=== PATIENT | female | born 1995 | race Caucasian/White ===

== ENCOUNTER → 2017-01-03 | Outpatient (REF) | payer OTHER | LOC: M SFHCLERA 12:01 | PROVIDERS: ATTEND Nurse Practitioner Family | DX: J06.9 Acute upper respiratory infection, unspecified (principal) ==

== ENCOUNTER → 2017-10-27 | Outpatient (REF) | payer OTHER ==
[2017-10-27 17:24] LABS: INFLUENZA A AMPLIFICATION NEGATIVE (NEGATIVE); INFLUENZA B AMPLIFICATION NEGATIVE (NEGATIVE)
== END ==
LOC: M SFHCLERA 14:54
DX: R68.89 Other general symptoms and signs (principal)

== ENCOUNTER 2020-09-09 22:40 | Emergency (ER) | payer OTHER ==
[~2020-09-09] VITALS: Ht 160 cm; Wt 101.6 kg
[2020-09-09 23:31] LABS: BASO % 0.4 % (0.0-1.0); EOS # 0.2 10^3/uL (0.0-0.5); HEMATOCRIT 39.9 % (36.0-47.0); HEMOGLOBIN 13.3 g/dl (12.0-15.5); LYMPH # 2.9 10^3/uL (1.5-5.0); LYMPH % 27.8 % (24.0-44.0); MEAN CORPUSCULAR HEMOGLOBIN 29.4 pg (27.0-33.0); MEAN CORPUSCULAR HGB CONC 33.3 g/dl (32.0-36.5); MEAN CORPUSCULAR VOLUME 88.3 fl (80.0-96.0); MONO # 0.7 10^3/uL (0.0-0.8); MONO % 7.2 % (0.0-5.0); NEUTROPHILS # 6.4 10^3/uL (1.5-8.5); NEUTROPHILS % 62.4 % (36.0-66.0); PLATELET COUNT, AUTOMATED 335 10^3/uL (150-450); RED BLOOD COUNT 4.52 10^6/uL (4.00-5.40); WHITE BLOOD COUNT 10.3 10^3/uL (4.0-10.0)
--- NOTE | 2020-09-10 00:26 | REPVR ---
PROCEDURE INFORMATION: Exam: US First Trimester, Transabdominal and US , Transvaginal Exam date and time: 09/10/2020 12:01 AM Age: 24 years old Clinical indication: Lmp or gestational age (in weeks): 7; Antepartum complications; Bleeding; ; Additional info: Vaginal bleeding TECHNIQUE: Imaging protocol: Real-time transabdominal obstetrical ultrasound of the maternal pelvis and a first trimester , less than 14 weeks 0 days, with image documentation. Transvaginal imaging was used for better evaluation of the fetus, adnexa, and/or cervix. COMPARISON: No relevant prior studies available. FINDINGS: Gestation: No intra or extra uterine gestation. MATERNAL: Uterus: Uterus measures 7.6 x 4 x 5.6 cm. Endometrial stripe is approximately 5 mm. Cervix: Unremarkable. Right adnexa: Right ovary measures 3.7 x 2.7 x 3.5 cm. There is a simple 2.3 cm right ovarian cyst. Left adnexa: Left ovary measures 2.5 x 1.5 x 1.7 cm. Intraperitoneal space: No intraperitoneal free fluid. IMPRESSION: No intra or extra uterine gestation. Recommend continued beta HCG follow-up and repeat ultrasound in 1-2 weeks. Simple 2.3 cm right ovarian cyst. Electronically signed by: Kofi Lakhani On 09/10/2020 00:26:34 AM
[2020-09-10 00:44] LABS: APPEARANCE, URINE HAZY (CLEAR); BACTERIA, URINE AUTO NEGATIVE (NEGATIVE); BILIRUBIN, URINE AUTO NEGATIVE (NEGATIVE); BLOOD, URINE BLOOD 3+ (NEGATIVE); COLOR, URINE YELLOW (YELLOW); GLUCOSE, URINE (UA) AUTO NEGATIVE (NEGATIVE); KETONE, URINE AUTO NEGATIVE (NEGATIVE); LEUKOCYTE ESTERASE, URINE AUTO NEGATIVE (NEGATIVE); MUCUS, URINE SMALL (NEGATIVE); NITRITE, URINE AUTO NEGATIVE (NEGATIVE); PROTEIN, URINE AUTO NEGATIVE (NEGATIVE); RBC, URINE AUTO TNTC /HPF (0-3); SQUAMOUS EPITHELIAL CELL UR AU 0 /HPF (0-6); UROBILINOGEN, URINE AUTO 0.2 mg/dL (0.0-2.0); WBC, URINE AUTO 1 /HPF (0-3)
[2020-09-10] MEDS ORDERED: RHOGAM 300 MCG (1500 IU) INJ (J2790) IM ONE (01:15)
[2020-09-10 02:04] VITALS: BP 120/69
== END 2020-09-10 02:30 | disposition home or self-care (01) ==
LOC: M ED 22:40
DX: O03.4 Incomplete spontaneous abortion without complication (principal); Z67.91 Unspecified blood type, Rh negative
CPT/HCPCS: 76801; 81001; 84702; 85025; 86850; 86900; 86901; 87086; 96372; 99284; J2790

== ENCOUNTER → 2020-09-13 | Outpatient (CLI) | payer OTHER | LOC: M LAB 10:38 | PROVIDERS: ATTEND Physician Assistant Medical | DX: O03.4 Incomplete spontaneous abortion without complication (principal) ==

== ENCOUNTER 2020-10-20 19:09 | Emergency (ER) | payer OTHER ==
[~2020-10-20] VITALS: Ht 160 cm; Wt 102.0 kg
--- OUTSIDE RECORDS SUMMARY | 2020-10-20 19:17 | CCD ---
Author Author [facility] Organization [facility] Address Unknown Phone Unavailable Care Team Providers Care Orthopedic Brace Maker Name Role Phone BENJAMIN, DARYL ASHLEY CUSTOMER PROGRAM MANAGER Unavailable Unavailable BENJAMIN, DARYL ASHLEY CUSTOMER PROGRAM MANAGER Unavailable Unavailable BENJAMIN, DARYL ASHLEY CUSTOMER PROGRAM MANAGER Unavailable Unavailable BENJAMIN, DARYL ASHLEY CUSTOMER PROGRAM MANAGER Unavailable Unavailable BENJAMIN, DARYL ASHLEY CUSTOMER PROGRAM MANAGER Unavailable Unavailable BENJAMIN, DARYL ASHLEY CUSTOMER PROGRAM MANAGER Unavailable Unavailable BENJAMIN, DARYL ASHLEY CUSTOMER PROGRAM MANAGER Unavailable Unavailable BENJAMIN, DARYL ASHLEY CUSTOMER PROGRAM MANAGER Unavailable Unavailable BENJAMIN, DARYL ASHLEY CUSTOMER PROGRAM MANAGER Unavailable Unavailable BENJAMIN, DARYL ASHLEY CUSTOMER PROGRAM MANAGER Unavailable Unavailable BENJAMIN, DARYL ASHLEY CUSTOMER PROGRAM MANAGER Unavailable Unavailable BENJAMIN, DARYL ASHLEY CUSTOMER PROGRAM MANAGER Unavailable Unavailable BENJAMIN, DARYL ASHLEY CUSTOMER PROGRAM MANAGER Unavailable Unavailable BENJAMIN, DARYL ASHLEY CUSTOMER PROGRAM MANAGER Unavailable Unavailable BENJAMIN, DARYL ASHLEY CUSTOMER PROGRAM MANAGER Unavailable Unavailable BENJAMIN, DARYL ASHLEY CUSTOMER PROGRAM MANAGER Unavailable Unavailable BENJAMIN, DARYL ASHLEY CUSTOMER PROGRAM MANAGER Unavailable Unavailable BENJAMIN, DARYL ASHLEY CUSTOMER PROGRAM MANAGER Unavailable Unavailable BENJAMIN, DARYL ASHLEY CUSTOMER PROGRAM MANAGER Unavailable Unavailable BENJAMIN, DARYL ASHLEY CUSTOMER PROGRAM MANAGER Unavailable Unavailable BENJAMIN, DARYL ASHLEY CUSTOMER PROGRAM MANAGER Unavailable Unavailable BENJAMIN, DARYL ASHLEY CUSTOMER PROGRAM MANAGER Unavailable Unavailable BENJAMIN, DARYL ASHLEY CUSTOMER PROGRAM MANAGER Unavailable Unavailable Re-disclosure Warning The records that you are about to access may contain information from federally-assisted alcohol or drug abuse programs. If such information is present, then the following federally mandated warning applies: This information has been disclosed to you from records protected by federal confidentiality rules (42 CFR part 2). The federal rules prohibit you from making any further disclosure of this information unless further disclosure is expressly permitted by the written consent of the person to whom it pertains or as otherwise permitted by 42 CFR part 2. A general authorization for the release of medical or other information is NOT sufficient for this purpose. The Federal rules restrict any use of the information to criminally investigate or prosecute any alcohol or drug abuse patient.The records that you are about to access may contain highly sensitive health information, the redisclosure of which is protected by Article 27-F of the [place] Public Health law. If you continue you may have access to information: Regarding HIV / AIDS; Provided by facilities licensed or operated by the [place] Office of Mental Health; or Provided by the [place] [facility] Office for People With Developmental Disabilities. If such information is present, then the following [facility] mandated warning applies: This information has been disclosed to you from confidential records which are protected by state law. State law prohibits you from making any further disclosure of this information without the specific written consent of the person to whom it pertains, or as otherwise permitted by law. Any unauthorized further disclosure in violation of state law may result in a fine or longterm sentence or both. A general authorization for the release of medical or other information is NOT sufficient authorization for further disc losure. Family History Family Member Name Family Member Gender Family Member Status Date o f Status Description Data Source(s) Unknown Male Problem [facility] ([facility]) Encounters Encounter Providers Location Date Indications Data Source(s ) Outpatient Attender: ASHLEY BENJAMIN NP 03:00:00 PM EST - 07/20/2020 03:00:00 PM [facility] Outpatient Attender: ASHLEY BENJAMIN NP Family Practice 07/20/2020 02 :00:00 PM EST [facility] ([facility]) Outpatient Attender: ASHLEY BENJAMIN NP 09:23:00 AM EST - 11/18/2019 09:23:00 AM [facility] Outpatient Attender: ASHLEY BENJAMIN NP Family Practice 11/18/2019 08 :30:00 AM EST [facility] ([facility]) Outpatient Attender: ASHLEY BENJAMIN NP 09:26:00 AM EST - 10/28/2019 09:26:00 AM [facility] Outpatient Attender: ASHLEY BENJAMIN CUSTOMER PROGRAM MANAGER Family Practice 10/28/2019 08 :30:00 AM EST [facility] ([facility]) Medications Medication Brand Name Start Date Product Form Dose Route Admi nistrative Instructions Pharmacy Instructions Status Indications Reaction Description Data Source(s) Levonorgestrel 0.791568 MG/HR Drug Implant [Monse] Monse 10/28/2019 12:00:00 AM EST active [facility] ([facility]) Insurance Providers Payer name Policy type / Coverage type Policy ID Covered constitution party ID Covered constitution party's relationship to yuen Policy Yuen Plan Information [facility] [id number] SP [id number] [facility] O [id number] S 0001 [id number] [facility] [id number] SP [id number] [facility] [place] [id number] 18 0001 [id number] [facility] AT [facility] [place] [id number] 18 [id number] [facility] Commercial [id number] Self [id number] ANSI-Commercial [id number] ANSI-Commercial [id number] Problems, Conditions, and Diagnoses Code Display Name Description Problem Type Effective Dates Data Source(s) P23273 Encounter for removal of intrauterine co ntraceptive device Encounter for removal of intrauterine contraceptive device Diagnosis 0 03:00:00 PM [facility] [id number] Encounter for insertion of intrauterine contraceptive device Encounter for insertion of intrauterine contraceptive device Diagnosis 10/2019 09:23:00 AM [facility] [id number] Encounter for initial prescription of in trauterine contraceptive device Encounter for initial prescription of intrauterine contraceptive device Diagnosis 10/28/2019 09:26:00 AM [facility] [id number] Encounter for gynecological examination (general) (routine) without abnormal findings Encounter for gynecological examination (general) (routine) without abnormal findings Diagnosis 10/28/2019 09:26:00 AM [facility] Results ID Date Data Source [id number] 11/18/2019 09:27:00 AM EST [facility] ([facility]) Name Value Range Interpretation Code Description Data Nicole rce(s) Supporting Document(s) Inhouse Urine Test NEGATIVE [facility] ([facility]) ID Date Data Source [id number] 10/28/2019 10:45:00 AM EST [facility] ([facility]) Name Value Range Interpretation Code Description Data Nicole rce(s) Supporting Document(s) Chlamydia trachomatis,Sindy Negative [facility] ([facility]) {SOURCE: R~.~.~Z01.419 Neisseria gonorrhoeae,Sindy Negative [facility] ([facility]) {SOURCE: R~.~.~Z01.419 Source: R [facility] ([facility]) {SOURCE: R~.~.~Z01.419 ID Date Data Source [id number] 11/01/2019 08:30:00 AM [facility] Name Value Range Interpretation Code Description Data Nicole rce(s) Supporting Document(s) SOURCE: R [facility] Chlamydia trachomatis rRNA [Presence] in Unspecified specimen by Probe and target amplification method Negative Negative [facility] Neisseria gonorrhoeae rRNA [Presence] in Unspecified specimen by Probe and target amplification method Negative Negative [facility] Procedure Vital Signs ID Date Data Source UNK Name Value Range Interpretation Code Description Data Source(s) Body surface area Derived from formula 2.01 m2 2.01 m2 [facility] ([facility]) Body mass index (BMI) [Ratio] 38.8 kg/m2 38.8 k g/m2 [facility] ([facility]) Body height 63 [in_i] 63 [in_i] [facility] ([facility]) 5'3" Body weight 99.338 kg 99.338 kg [facility] ([facility]) Body weight 219.00 [lb_av] 219.00 [lb_av] [facility] T ([facility]) Body temperature 97.5 [degF] 97.5 [degF] [facility] ([facility]) Heart rate 69 /min 69 /min [facility] ([facility]) Diastolic blood pressure 78 mm[Hg] 78 mm[Hg] [facility] ([facility]) Systolic blood pressure 120 mm[Hg] 120 mm[Hg] M EDENT ([facility]) Body surface area Derived from formula 2.01 m2 2.01 m2 [facility] ([facility]) Body mass index (BMI) [Ratio] 38.6 kg/m2 38.6 k g/m2 [facility] ([facility]) Body height 63 [in_i] 63 [in_i] [facility] ([facility]) 5'3" Body weight 98.885 kg 98.885 kg [facility] ([facility]) Body weight 218.00 [lb_av] 218.00 [lb_av] MEDEN T ([facility]) Heart rate 68 /min 68 /min [facility] ([facility]) Diastolic blood pressure 70 mm[Hg] 70 mm[Hg] [facility] ([facility]) Systolic blood pressure 114 mm[Hg] 114 mm[Hg] M EDENT ([facility]) Body surface area 2.01 m2 2.01 m2 [facility] ([facility]) Body surface area 1.97 m2 1.97 m2 [facility] ([facility]) Body mass index (BMI) [Ratio] 37.0 kg/m2 37.0 k g/m2 [facility] ([facility]) Body height 63 [in_i] 63 [in_i] [facility] ([facility]) 5'3" Body weight 94.802 kg 94.802 kg [facility] ([facility]) Body weight 209.00 [lb_av] 209.00 [lb_av] [facility] T ([facility]) Heart rate 54 /min 54 /min [facility] ([facility]) Diastolic blood pressure 85 mm[Hg] 85 mm[Hg] [facility] ([facility]) Systolic blood pressure 121 mm[Hg] 121 mm[Hg] M ED[facility] ([facility])
[2020-10-20] MEDS ORDERED: METAL LOCK LOOP XX ONE (19:54)
--- OUTSIDE RECORDS SUMMARY | 2020-10-20 20:03 | CCD ---
Author Author [facility] Organization [facility] Address Unknown Phone Unavailable Care Team Providers Care Office Support Associate Name Role Phone BENJAMIN, DARYL ASHLEY SOLVENT PLANT OPERATOR Unavailable Unavailable BENJAMIN, DARYL ASHLEY SOLVENT PLANT OPERATOR Unavailable Unavailable BENJAMIN, DARYL ASHLEY SOLVENT PLANT OPERATOR Unavailable Unavailable BENJAMIN, DARYL ASHLEY SOLVENT PLANT OPERATOR Unavailable Unavailable BENJAMIN, DARYL ASHLEY SOLVENT PLANT OPERATOR Unavailable Unavailable BENJAMIN, DARYL ASHLEY SOLVENT PLANT OPERATOR Unavailable Unavailable BENJAMIN, DARYL ASHLEY SOLVENT PLANT OPERATOR Unavailable Unavailable BENJAMIN, DARYL ASHLEY SOLVENT PLANT OPERATOR Unavailable Unavailable BENJAMIN, DARYL ASHLEY SOLVENT PLANT OPERATOR Unavailable Unavailable BENJAMIN, DARYL ASHLEY SOLVENT PLANT OPERATOR Unavailable Unavailable BENJAMIN, DARYL ASHLEY SOLVENT PLANT OPERATOR Unavailable Unavailable BENJAMIN, DARYL ASHLEY SOLVENT PLANT OPERATOR Unavailable Unavailable BENJAMIN, DARYL ASHLEY SOLVENT PLANT OPERATOR Unavailable Unavailable BENJAMIN, DARYL ASHLEY SOLVENT PLANT OPERATOR Unavailable Unavailable BENJAMIN, DARYL ASHLEY SOLVENT PLANT OPERATOR Unavailable Unavailable BENJAMIN, DARYL ASHLEY SOLVENT PLANT OPERATOR Unavailable Unavailable BENJAMIN, DARYL ASHLEY SOLVENT PLANT OPERATOR Unavailable Unavailable BENJAMIN, DARYL ASHLEY SOLVENT PLANT OPERATOR Unavailable Unavailable BENJAMIN, DARYL ASHLEY SOLVENT PLANT OPERATOR Unavailable Unavailable BENJAMIN, DARYL ASHLEY SOLVENT PLANT OPERATOR Unavailable Unavailable BENJAMIN, DARYL ASHLEY SOLVENT PLANT OPERATOR Unavailable Unavailable BENJAMIN, DARYL ASHLEY SOLVENT PLANT OPERATOR Unavailable Unavailable BENJAMIN, DARYL ASHLEY SOLVENT PLANT OPERATOR Unavailable Unavailable Re-disclosure Warning The records that [...] is protected by Article 27-F of the [place] Public Health law. If you continue you may have access to information: Regarding HIV / AIDS; Provided by facilities licensed or operated by the [place] Office of Mental Health; or Provided by the [place] Office for People With Developmental Disabilities. If such information is present, then the following [place] mandated warning applies: This information has been [...] law may result in a fine or correction sentence or both. A general authorization for the release of medical or other information is NOT sufficient authorization for further disc losure. Family History Family Member Name Family Member Gender Family Member Status Date o f Status Description Data Source(s) Unknown Male Problem [facility] ([facility]) Encounters Encounter Providers Location Date Indications Data Source(s ) Outpatient Attender: ASHLEY BENJAMIN NP 03:00:00 PM EST - 07/20/2020 03:00:00 PM [facility] Outpatient Attender: ASHLEY BENJAMIN NP Family Practice 07/20/2020 02 :00:00 PM EST [facility] ([facility]) Outpatient Attender: ASHLEY BENJAMIN NP 09:23:00 AM EST - 11/18/2019 09:23:00 AM [facility] Outpatient Attender: ASHLEY BENJAMIN NP Family Practice 11/18/2019 08 :30:00 AM EST [facility] ([facility]) Outpatient Attender: ASHLEY BENJAMIN NP 09:26:00 AM EST - 10/28/2019 09:26:00 AM [facility] Outpatient Attender: ASHLEY BENJAMIN SOLVENT PLANT OPERATOR Family Practice 10/28/2019 08 :30:00 AM EST [facility] ([facility]) Medications Medication Brand Name Start Date Product Form Dose Route Admi nistrative Instructions Pharmacy Instructions Status Indications Reaction Description Data Source(s) Levonorgestrel 0.263482 MG/HR Drug Implant [Monse] Monse 10/28/2019 12:00:00 AM EST active [facility] ([facility]) Insurance Providers Payer name Policy type / Coverage type Policy ID Covered libertarian ID Covered libertarian's relationship to yuen Policy Yuen Plan Information [employer] [id number] SP [id number] [facility] [id number] SP [id number] [facility] O [id number] S 0001 [id number] [facility] [id number] SP [id number] [facility] [place] [id number] 18 0001 [id number] [place] AT [facility] [place] [id number] 18 [id number] [facility] Commercial [id number] Self [id number] ANSI-Commercial [id number] ANSI-Commercial [id number] Problems, Conditions, and Diagnoses Code Display Name Description Problem Type Effective Dates Data Source(s) [id number] Encounter for removal of intrauterine co ntraceptive device Encounter for removal of intrauterine contraceptive device Diagnosis 0 03:00:00 PM [facility] [id number] Encounter for insertion of intrauterine contraceptive device Encounter for insertion of intrauterine contraceptive device Diagnosis 10/2019 09:23:00 AM [facility] [id number] Encounter for initial prescription of in trauterine contraceptive device Encounter for initial prescription of intrauterine contraceptive device Diagnosis 10/28/2019 09:26:00 AM [facility] [id number] Encounter for gynecological examination (general) (routine) without abnormal findings Encounter for gynecological examination (general) (routine) without abnormal findings Diagnosis 10/28/2019 09:26:00 AM EST [facility] Results ID Date Data Source [id number] 11/18/2019 09:27:00 AM EST [facility] ([facility]) Name Value Range Interpretation Code Description Data Nicole rce(s) Supporting Document(s) Inhouse Urine Test NEGATIVE [facility] ([facility]) ID Date Data Source [id number] 10/28/2019 10:45:00 AM EST [facility] ([facility]) Name Value Range Interpretation Code Description Data Nicole rce(s) Supporting Document(s) Chlamydia trachomatis,Sindy Negative [facility] ([facility]) {SOURCE: R~.~.~Z01.419 Neisseria gonorrhoeae,Sindy Negative [facility] ([facility]) {SOURCE: R~.~.~Z01.419 Source: R [facility] ([facility]) {SOURCE: R~.~.~Z01.419 ID Date Data Source [id number] 11/01/2019 08:30:00 AM EST [facility] Name Value Range Interpretation Code Description Data Nicole rce(s) Supporting Document(s) SOURCE: R [facility] Chlamydia trachomatis rRNA [Presence] in Unspecified specimen by Probe and target amplification method Negative Negative [facility] Neisseria gonorrhoeae rRNA [Presence] in Unspecified specimen by Probe and target amplification method Negative Negative [facility] Procedure Vital Signs ID Date Data Source UNK Name Value Range Interpretation Code Description Data Source(s) Body surface area Derived from formula 2.[address] [facility] ([facility]) Body mass index (BMI) [Ratio] 38.8 kg/m2 38.8 k g/m2 [facility] ([facility]) Body height 63 [in_i] 63 [in_i] [facility] ([facility]) 5'3" Body weight 99.[address] [facility] ([facility]) Body weight 219.00 [lb_av] 219.00 [lb_av] MED[facility] T ([facility]) Body temperature 97.5 [degF] 97.5 [degF] [facility] ([facility]) Heart rate 69 /min 69 /min [facility] ([facility]) Diastolic blood pressure 78 mm[Hg] 78 mm[Hg] [facility] ([facility]) Systolic blood pressure 120 mm[Hg] 120 mm[Hg] M [facility] ([facility]) Body surface area Derived from formula 2.[address] [facility] ([facility]) Body mass index (BMI) [Ratio] 38.6 kg/m2 38.6 k g/m2 [facility] ([facility]) Body height 63 [in_i] 63 [in_i] [facility] ([facility]) 5'3" Body weight 98.885 kg 98.885 kg [facility] ([facility]) Body weight 218.00 [lb_av] 218.00 [lb_av] MEDEN T ([facility]) Heart rate 68 /min 68 /min [facility] ([facility]) Diastolic blood pressure 70 mm[Hg] 70 mm[Hg] [facility] ([facility]) Systolic blood pressure 114 mm[Hg] 114 mm[Hg] M [facility] ([facility]) Body surface area 2.01 m2 2.01 m2 [facility] ([facility]) Body surface area 1.97 m2 1.97 [facility]2 [facility] Body mass index (BMI) [Ratio] 37.0 kg/m2 37.0 k g/[facility] Body height 63 [in_i] 63 [in_i] [facility] ([facility]) 5'3" Body weight 94.802 kg 94.802 kg [facility] ([facility]) Body weight 209.00 [lb_av] 209.00 [lb_av] [facility] T ([facility]) Heart rate 54 /min 54 /min [facility] ([facility]) Diastolic blood pressure 85 mm[Hg] 85 mm[Hg] [facility] ([facility]) Systolic blood pressure 121 mm[Hg] 121 mm[Hg] M [facility] ([facility])
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
[2020-10-20] MEDS ORDERED: CYCL5TAB PO (21:32)
[2020-10-20 21:42] VITALS: BP 131/84
== END 2020-10-20 21:45 | disposition home or self-care (01) ==
LOC: M ED 19:09
DX: S13.4XXA Sprain of ligaments of cervical spine, initial encounter (principal); V43.52XA Car driver injured in collision with other type car in traffic accident, initial encounter; Y92.9 Unspecified place or not applicable; Y93.9 Activity, unspecified; Y99.9 Unspecified external cause status